=== PATIENT | female | born 1960 | race Caucasian/White ===

== ENCOUNTER 2016-05-22 13:52 | Inpatient (IN) | payer BC, SELFPAY ==
[~2016-05-22] VITALS: Ht 167.6 cm; Wt 79.1 kg
--- NOTE | ~2016-05-22 | FD ---
ADMIT: 05/22/2016 RM/LOC: 422 [facility] MR#: [id number] [address] [address] THIAGO MADDOX [address] [place] [address] Final Diagnosis SEX: F AGE: 55 : 1960 ADMISSION DATE: 05/22/2016 DISCHARGE DATE: 05/24/2016 FINAL DIAGNOSES: 1. Hyponatremia. 2. Hypokalemia. 3. Ulcerative tongue sore, likely secondary to trauma. 4. Bilateral hilar soft tissue masses, possible etiology infectious versus inflammatory versus sarcoid or connective tissue disorder versus neoplastic process. 5. Hypothyroidism. 6. Hypertension. Lanie Doe MD Resident / Avila Hernandez MD / modl JOB #: [id number] CC: Avila Hernandez MD, Attending Physician Avila Hernandez MD, Family Physician
[2016-05-24] MEDS ORDERED: SYNTHROID DP0.125 MG PO (15:41)
[2016-05-24] MEDS ORDERED: THERA1 EACH PO (15:41)
[2016-05-24] MEDS ORDERED: NORVASC5 MG PO (15:41)
[2016-05-24] MEDS ORDERED: TEARS NATURAL D15 ML OU (15:56)
[2016-05-24] MEDS ORDERED: MOTRIN-DPS400 MG PO (15:56)
[2016-05-24] MEDS ORDERED: SURFAK DPS240 MG PO (15:57)
[2016-05-24] MEDS ORDERED: MELATONIN3 MG PO (15:57)
[2016-05-24] MEDS ORDERED: TYLENOL DPS325 MG PO (15:57)
[2016-05-24] MEDS ORDERED: MARYS PO (15:57)
[2016-05-24] MEDS ORDERED: PAXIL DPS20 MG PO (15:58)
[2016-05-24] MEDS ORDERED: LEVAQUIN DPS500 MG PO (15:58)
[2016-05-24] MEDS ORDERED: MYCELEX TROCHE10 MG PO (15:58)
--- NOTE | 2016-05-28 08:33 | CO ---
ADMIT: 05/22/2016 RM/LOC: 422 [facility] MR#: [id number] [address] [address] CARLOS MADDOX [address] [place] [id number] Consultation SEX: F AGE: 55 : 1960 DATE OF CONSULTATION: 05/23/2016 ATTENDING PHYSICIAN: Avila Hernandez CONSULTING PHYSICIAN: Devyn Deleon MD CHIEF COMPLAINT: Painful ulcerated tongue. HISTORY OF PRESENT ILLNESS: Carlos presented to [facility] emergency room yesterday with a painful, ecchymotic, and ulcerated tongue on the right side. She has no past history of similar episodes. During her evaluation in the emergency room, chest x-ray and chest CT scan were obtained with bilateral perihilar infiltrates identified. She is also hyponatremic and hypokalemic, both of which are being treated at present. PHYSICAL EXAM: GENERAL: She is in no acute distress. HEENT: Her tongue is of normal size. There is a 1 cm ulceration of the right lateral tongue and ecchymosis involving the lateral and ventral surface of the tongue, predominantly right-sided although the ventral surface does cross midline. Saliva from Stensen's and Chester's ducts are patent and non purulent. There is no induration to the tongue tissues, they remained soft and tongue mobility is normal. Oropharynx is clear. Nose clear. NECK: No adenopathy, neck masses, thyromegaly, nodules, or asymmetry. IMPRESSION: Ulcerative, ecchymotic right tongue, most consistent with inadvertent trauma (such as biting tongue). Patient has no recall of this incident and states it could have happened during sleep as she awoke with the painful tongue, but the presence of the pulmonary infiltrates also makes us concerned of possible mycotic emboli. The CT appearance does not appear overtly neoplastic. RECOMMENDATION: We will continue to treat tongue symptomatically with topical and oral analgesics and I will follow patient. Devyn Deleon MD/ oscar JOB #: [id number] CC: Avila Hernandez, Attending Physician Avila Hernandez, Family Physician
--- NOTE | 2016-06-03 12:04 | HP ---
ADMIT: 05/22/2016 RM/LOC: 422 [facility] MR#: [id number] [address] [address] THIAGO MADDOX [address] [place] [id number] History and Physical SEX: F AGE: 55 : 1960 CHIEF COMPLAINT: Mouth and tongue sores. HISTORY OF PRESENT ILLNESS: The patient is a [facility] patient. She normally sees Louis Iraheta for her hyperthyroidism and high blood pressure. She most recently saw him when he was at the [facility], however, he is no longer there at this time, so she has not seen him in quite a few months. She mentions that over the past 3 to 4 days, she has noted some sores on her tongue and her mouth. She mentions that her tongue had turned to dark black in color. Then, she had these large sores that were very painful. She went to the Urgent Care yesterday to be seen. They took a look at her tongue and do some blood work. They noted that she had low sodium, potassium, and chloride. They did not give her any replacements, but they did put her on an antibiotic and told to return the following day. When she showed up today, she still had low sodium, low potassium, and low chloride, so they sent over to the ER. The patient otherwise has been feeling well. She said the pain in the mouth is her main concern. She denies any chest pain, shortness of breath, cough, congestion, or sinus pain. She denies any nausea, vomiting, diarrhea, abdominal pain, numbness, and tingling anywhere. She denies any joint pain. Then, she denies any hot or cold intolerance as well. She denies any skin changes, abnormal lumps, bruising, or lesions on her skin and denies any abnormal dryness. When she got to the ER, lab was drawn. She was found to have a sodium of 125, potassium 3.1, and a chloride of 84. Creatinine was normal at 0.9. GFR slightly low at 72. Her CK was elevated at 696, but the rest of her cardiac enzymes were negative. Initially, the patient had a chest x-ray that showed some bilateral hilar infiltrates, so I did a CT scan of the chest this afternoon and upon discussion with the ER Docs, there is no formal read in the [facility] system, but they explained that they were told that there could be either some signs of inflammation or even possibly something like sarcoidosis. REVIEW OF SYSTEMS: 10 point ROS negative otherwise mentioned in the HPI. PAST MEDICAL HISTORY: Significant for hypertension, hypothyroidism, status post thyroidectomy many many years ago. She denies it being cancer in origin, but states it is like benign nodules at that time. PAST SURGICAL HISTORY: Thyroidectomy. MEDICATIONS: Include levothyroxine and amlodipine. She is unsure of the doses of the same. SOCIAL HISTORY: She is single. Lives alone. Currently works at [employer]. 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 She denies ever any history of smoking. Denies illicit drug use, but she does drink alcohol approximately 3 to 4 beers a week. FAMILY HISTORY: Significant for hypertension, heart attacks, and AAA. PHYSICAL EXAMINATION: GENERAL: No acute distress. Alert and oriented x3. ADMIT: 05/22/2016 RM/LOC: 422 [facility] MR#: [id number] [address] [place] [id number] THIAGO MADDOX [address] [place] [address] History and Physical SEX: F AGE: 55 : 1960 Pleasant. HEENT: Normocephalic and atraumatic. Moist mucous membranes. Extraocular muscles are intact. Tongue, there is a lesion on the right lateral side of the tongue. Also, has some black discoloration on the top of the tongue as well as a dark beefy red with some orange and black discoloration on the ventral side of the tongue as well. Thyroid is nonpalpable. HEART: Regular rate and rhythm. There was a 3/6 murmur systolic, which she says that is normal for her. LUNGS: Clear to auscultation bilaterally. Normal effort. No rhonchi or wheezing. ABDOMEN: Soft and nontender. Positive bowel sounds. EXTREMITIES: No edema. NEURO: Cranial nerves II through XII are grossly intact. ASSESSMENT AND PLAN: This is a 55-year-old female with past medical history of hypertension and hypothyroidism. 1. Tongue sores. ENT has been consulted. They suggest a Xylocaine wash at this time. She will see them in the morning. 2. Hyponatremia. ER did give the patient a bolus of normal saline in the ER. We will recheck the BMP at this time. The arrival to the floor to see where her sodium level is at. If still low, we will replace it with 3% normal saline. We will also get a urine osm, sodium, and creatinine. 3. Hypokalemia, replaced with 40 mEq of potassium chloride. Chest x-ray showed bilateral infiltrates. This is a possible mass versus sarcoidosis. 4. Hypothyroidism. 5. Hypertension. 6. Increased lactic acid. At this time, we will give the patient fluids and reassess in 4 hours. The patient is otherwise stable at this time. If the patient truly does have sarcoidosis, there is a possibility that her hyponatremia could be due to SIADH. Moreover, her tongue lesions could be secondary to the SIADH as well. Lanie Doe MD Resident / Avila Hernandez MD / oscar JOB #: [id number] CC: Avila Hernandez, Attending Physician Avila Hernandez, Family Physician
--- NOTE | 2016-06-17 01:05 | ER ---
ADMIT: 05/22/2016 RM/LOC: 422 [facility] MR#: [id number] [address] [address] MAD[address] [place] [address] Emergency Room Report SEX: F AGE: 55 : 1960 DATE: 05/22/2016 ADDENDUM: This patient comes to the ER because she has a sore tongue. She noticed yesterday that her tongue was dark colored and sore with some ulcers on that. She went to Urgent Care. They thought it was an infection and they amanda blood from her. They told her that her sodium and potassium were low and made her come back again today to recheck it. She continues to have a sore dark-colored tongue at Urgent Care. Her potassium was 2.7, her sodium was 115, and her chloride was 83, so they sent her to the ER along with a chest x- ray. The chest x-ray did show what looked to be suspicious for masses. We did a CAT scan of her chest, which showed sarcoidosis versus atypical bilateral infiltrates. In the emergency room, her sodium was 125, her potassium was 3.1, and her chloride was 84. I did consult with Dr. Rangel concerning treatment of this patient and he also examined the patient. The right side of her tongue was a darkened blue color consistent with a hematoma, however, there were several ulcers on the right side of her tongue and also going underneath her tongue. At the bottom of her tongue or the underneath area of her tongue, it was also dark covered hematoma and the floor of the right side of her mouth was almost a blackish color. There was no swelling noted in her tongue and she had no lymph nodes cervical. Her lungs were clear. I spoke with Dr. Hernandez/Dr. Doe and this patient will be admitted. DIAGNOSES: 1. Hyponatremia. 2. Hypokalemia. 3. Hypochloremia. 4. Tongue ulcers. 5. Bilateral infiltrates. Please see my T-sheet. JOHN Lozoya / Drew Rangel MD / oscar JOB #: [id number] CC: Avila Hernandez MD, Attending Physician Avila Hernandez MD, Family Physician
== END 2016-05-24 10:48 | disposition home or self-care (01) | DRG 641 ==
LOC: ER 13:52 → 4PCU 19:58
PROVIDERS: ADMIT Family Medicine
DX: E87.1 Hypo-osmolality and hyponatremia (principal); I10 Essential (primary) hypertension; K14.0 Glossitis; E87.6 Hypokalemia; R91.8 Other nonspecific abnormal finding of lung field; E89.0 Postprocedural hypothyroidism; Z82.49 Family history of ischemic heart disease and other diseases of the circulatory system

== ENCOUNTER → 2016-06-21 | Outpatient (CLI) | payer OTHER ==
[~2016-06-21] MED LIST: LEVAQUIN DPS500 MG PO; MARYS PO; MELATONIN3 MG PO; MOTRIN-DPS400 MG PO; MYCELEX TROCHE10 MG PO; NORVASC5 MG PO; PAXIL DPS20 MG PO; SURFAK DPS240 MG PO; SYNTHROID DP0.125 MG PO; TEARS NATURAL D15 ML OU; THERA1 EACH PO; TYLENOL DPS325 MG PO
== END | disposition home or self-care (01) ==
LOC: PTH.S 11:00
DX: E03.9 Hypothyroidism, unspecified (principal)

== ENCOUNTER → 2016-07-06 | Outpatient (CLI) | payer BC, SELFPAY | END | disposition home or self-care (01) | LOC: RAD.S 08:51 | DX: R59.0 Localized enlarged lymph nodes (principal); J98.11 Atelectasis; R91.8 Other nonspecific abnormal finding of lung field; R59.9 Enlarged lymph nodes, unspecified ==

== ENCOUNTER → 2016-08-22 | Outpatient (CLI) | payer BC, SELFPAY | END | disposition home or self-care (01) | LOC: RAD.S 15:45 | DX: J45.909 Unspecified asthma, uncomplicated (principal); R91.8 Other nonspecific abnormal finding of lung field; R06.02 Shortness of breath; R59.0 Localized enlarged lymph nodes; M48.54XD Collapsed vertebra, not elsewhere classified, thoracic region, subsequent encounter for fracture with routine healing ==